=== PATIENT | male | born 1955 | race Hispanic/Latino ===

== ENCOUNTER 2022-04-03 05:44 | Day surgery (SDC) | payer OTHER ==
[2022-03-29 11:49] LABS: BASOPHILS % (AUTO) 0.7 % (0.0-5.0); EOSINOPHILS % (AUTO) 2.2 % (0.0-8.0); HEMATOCRIT 34.4 % (42-54); LYMPHOCYTES % (AUTO) 23.3 % (21.0-51.0); MEAN CORPUSCULAR HEMOGLOBIN 31.6 pg (27.0-33.0); MEAN CORPUSCULAR HGB CONC 33.7 g/dL (32.0-36.0); MEAN CORPUSCULAR VOLUME 93.7 fL (79-99); MONOCYTES % (AUTO) 9.2 % (3.0-13.0); NEUTROPHILS % (AUTO) 64.4 % (40.0-77.0); PLATELET COUNT (AUTO) 179 K/uL (130-400); RED BLOOD CELL COUNT(AUTO) 3.67 MIL/uL (4.50-6.20); RED CELL DISTRIBUTION WIDTH 13.3 % (11.0-15.5); WHITE BLOOD COUNT (AUTO) 5.5 K/uL (4.8-10.8)
[2022-03-29 11:56] LABS: CREATININE 5.9 mg/dL (0.5-1.5); POTASSIUM 4.8 mmol/L (3.5-5.1)
[2022-03-29 12:02] LABS: INR 0.97 (0.85-1.15); PROTHROMBIN TIME 10.6 SEC (9.6-11.6)
[2022-03-29 12:03] LABS: PARTIAL THROMBOPLASTIN TIME 28.2 SEC (26.3-35.5)
[2022-04-02 10:11] VITALS: BP 112/65
[~2022-04-03] VITALS: Ht 175.3 cm; Wt 90.5 kg
[2022-04-03] VITALS (11 sets, daily range): BP systolic 80–110; BP diastolic 51–66
[~2022-04-03 05:44] MED LIST: CARV6.25 PO; CEFAZOLIN SODIUM 2 GM VIAL IVPB SCH; CINA30 PO; CLOP75TA32 PO; FOLI1TAB85 PO; INSLAN SQ; LINA5TAB PO; METO5TAB2 PO; SACU1TAB PO; SPIR25TA6 PO; TRAZ-185 PO
[2022-04-03] MEDS ORDERED: 0.9%NACL 1000ML 1,000 ML IV ONE (06:16)
[2022-04-03 06:28] LABS: CREATININE 6.1 mg/dL (0.5-1.5); POTASSIUM 4.7 mmol/L (3.5-5.1)
[2022-04-03] MEDS ORDERED: LIDOCAINE HCL 1% MDV 50ML VIAL ONE (07:34)
[2022-04-03] MEDS ORDERED: MEPERIDINE-PF 25 MG/ML SYG ONE ×2 (07:34→07:58)
[2022-04-03] MEDS ORDERED: MIDAZOLAM HCL 1 MG/ML 2ML VIAL ONE ×2 (07:34→07:59)
[2022-04-03] MEDS ORDERED: IOHEXOL-350 50ML VIAL IV ONE (07:34)
[2022-04-03] MEDS ORDERED: CEFAZOLIN SODIUM 1 GM VIAL ONE (07:34)
[2022-04-03] MEDS ORDERED: BUPIVACAINE/PF 0.25% 10ML VIAL IJ ONE (07:36)
[2022-04-03] MEDS ORDERED: 0.9%NACL 100ML IVPB ONE (09:00)
[2022-04-03] MEDS ORDERED: ACETAMINOPHEN 325 MG TAB PO PRN (09:00)
[2022-04-03] MEDS ORDERED: VANCOMYCIN 500MG VIAL IVPB ONE (09:00)
[2022-04-03] MEDS ORDERED: ACETAMINOPHEN 500 MG TABLET PO PRN (09:00)
[2022-04-03] MEDS ORDERED: TRAM50TA4 PO (09:02)
== END 2022-04-03 12:55 | disposition home or self-care (01) ==
LOC: DAH 05:44
PROVIDERS: ATTEND Internal Medicine Cardiovascular Disease
DX: I25.5 Ischemic cardiomyopathy (principal); I45.10 Unspecified right bundle-branch block; E11.22 Type 2 diabetes mellitus with diabetic chronic kidney disease; N18.6 End stage renal disease; I50.42 Chronic combined systolic (congestive) and diastolic (congestive) heart failure; E11.51 Type 2 diabetes mellitus with diabetic peripheral angiopathy without gangrene; E78.5 Hyperlipidemia, unspecified; Z99.2 Dependence on renal dialysis; Z79.01 Long term (current) use of anticoagulants; Z79.4 Long term (current) use of insulin; Z79.899 Other long term (current) drug therapy; Z98.890 Other specified postprocedural states
CPT/HCPCS: 80048 ×2; 85025; 85610; 85730; 36415 ×2; 93005; 33249; 82948; 71045; C1722; C1895; J0690; J7030; J2250 ×2; J3490 ×2; J2175 ×2; Q9967; J3370; A4215; A4657; A6251; A4222; A4221; A4663; A4216; A6258; A4606; A4223 ×3; 99156; 99157